=== PATIENT | female | born 1955 | race African-American/Black ===

== ENCOUNTER 2018-01-14 21:55 | Inpatient (IN) | payer SELFPAY ==
[2018-01-14 22:21] LABS: Bilirubin Small (Negative); Blood, Urine Moderate (Negative); Clarity TURBID (Clear); Glucose, Urine (Dipstick) Negative (Negative); Leukocyte Small (Negative); Nitrite Negative (Negative); Protein, Urine (Dipstick) 300 mg/dL (Neg-Trace); Specific Gravity, Urine 1.019 (1.002-1.036); Urobilinogen 0.2 mg/dL (0.2-1.0); pH, Urine 5.5 (5.0-9.0)
[2018-01-14 22:24] LABS: Squamous Epithelial 21-50 HPF (0-3)
[2018-01-14 22:25] LABS: Pathc Cast-AUWi Flag 14.04 (0-2.49); Yeast-AUWi Flag 186.8 (0-25.0)
[2018-01-14 22:31] LABS: Mean Corpuscular HGB CONC 33.9 g/dL (32.0-36.0); Mean Corpuscular Hemoglobin 30.8 pg (27.0-31.0); Mean Corpuscular Volume 90.7 fL (78.0-98.0); Mean Platelet Volume 8.1 fL (7.4-10.4); Platelet Count 158 thou/uL (130-400); RBC Distribution Width 11.9 % (11.5-14.5); Red Blood Cell (RBC) Count 3.58 mill/uL (4.20-5.40); White Blood Cell (WBC) Count 15.8 thou/uL (4.8-10.8)
[2018-01-14 22:33] LABS: Renal Epithelial 0-3 HPF (0-3); Transitional Epithelial 0-3 HPF (0-3)
[2018-01-14] MEDS ORDERED: Ibuprofen 800 MG TAB ONE (22:33)
[2018-01-14 22:35] LABS: Bacteria/HPF 1+ HPF (None Seen)
[2018-01-14 22:36] LABS: Hyaline Casts/LPF 4-6 HYALINE CAST LPF (0-3 Hyaline); Other Casts/LPF 0-3 COARSE GRAN LPF (0-3 Hyaline)
[2018-01-14 22:47] LABS: ALT (SGPT) 9 U/L (8-55); AST (SGOT) 14 U/L (5-34); Albumin 3.5 g/dL (3.4-4.8); Alkaline Phosphatase 78 U/L (40-150); Anion Gap 18 mmol/L (10-20); BUN (Urea Nitrogen) 61 mg/dL (9.8-20.1); Bilirubin, Total 0.6 mg/dL (0.2-1.2); Calc. Creatinine Clearance 0 mL/min (70-130); Calcium 8.9 mg/dL (7.8-10.44); Carbon Dioxide 16 mmol/L (23-31); Chloride 101 mmol/L (98-107); Estimated GFR-MDRD 11; Globulin 3.5 g/dL (2.4-3.5); Glucose 108 mg/dL (80-115); Lipase 21 U/L (8-78); Sodium 132 mmol/L (136-145)
[2018-01-14 22:52] LABS: Base Excess-Venous -7.1 mmol/L (0 (+/- 2.5)); Bicarbonate (HCO3v) 18.4 mmol/L (1.0-85.0); CO2 Tension (PvCO2) 36.1 mmHg (41.0-51.0); Calcium, Ionized 1.09 mmol/L (1.12-1.32); Hemoglobin - Calc 9.5 g/dL (12.0-18.0); O2 Tension (PvO2) 24.5 mmHg (35.0-45.0); Potassium 2.9 mmol/L (3.4-4.7); T. Carbon Dioxide 19.5 mmol/L (1.0-85.0); pH (Venous) 7.316 (7.35-7.45); vO2 Saturation-calc 39.3 % (94-98)
[2018-01-14 23:05] LABS: Band 25 % (5-11); Lymphocytes 3 % (21-51); MDiff Complete? YES; Monocytes 2 % (0-10); Neutrophil 70 % (42-75); PLT Morphology Comment Appears Adequate
--- NOTE | 2018-01-14 23:06 | RAD ---
PORTABLE CHEST: History: Fever. Diarrhea. Vomiting. Comparison: 09-19-16 FINDINGS: Heart size is within normal limits. Aorta is mildly tortuous. Lungs are clear of infiltrates. The bon es are demineralized. IMPRESSION: No active intrathoracic disease. POS: [facility]
[2018-01-14] MEDS ORDERED: Piperacillin/Tazobactam 4.5 GM VIAL ONE (23:41)
[2018-01-15] MEDS ORDERED: Potassium Chloride 20 MEQ in Premix Bag 1 BAG IVPB SCH (00:15)
--- NOTE | 2018-01-15 01:19 | HP ---
DATE OF ADMISSION: 01/15/2018 CHIEF COMPLAINT: Abdominal pain and fever. HISTORY OF PRESENT ILLNESS: This is a 62-year-old -[place] female who was living by herself. She has been feeling weak and tired and lethargic with fever and abdominal pain for the past few da ys and she was seen lying on the floor by her friend who was checking on her and she immediately call ed EMS and EMS picked her up and she was brought to the ER. The patient was very tachycardic at 110 with high fever of 101. The patient was noted to have adithya urinary tract infection with elevated wh ite count and worsening renal functions. Patient looked extremely sick at this time. She denies hav ing any chest pain and was unable to give any other history at this time. She denies having any past medical history, but again patient is a very disoriented and unable to give any history and no famil y member is arrived at the bedside. PAST MEDICAL HISTORY: None. PAST SURGICAL HISTORY: None. SOCIAL HISTORY: Unable to obtain. She lives independently by herself. No history of smoking, alcoh ol or illicit drug use according to her. FAMILY HISTORY: No significant family history. This has been thoroughly reviewed with the patient. REVIEW OF SYSTEMS: Unable to obtain review of systems at the patient is very lethargic and disorient ed, unable to answer most of the questions with some of the questions have been answered in the HPI b ased on a thorough evaluation of her and from the ER physicians with primary contact with patient's a unt. ALLERGIES: No known drug allergies. HOME MEDICATIONS: None. PHYSICAL EXAMINATION: VITAL SIGNS: Blood pressure 101/60, heart rate is 110, respiratory rate is 18, saturation is 98%. GENERAL: The patient is moderately built and moderately nourished, does not appears to be in acute d istress at this time. Alert and oriented x3. HEENT: Atraumatic, normocephalic. PERRLA. Extraocular movements were intact. Oral mucosa is pink and dry. CARDIOVASCULAR: S1, S2 normal. No murmurs, rubs or gallops. LUNGS: Bilateral air entry was equal. No wheezing, no crackles. ABDOMEN: Soft, nontender, no guarding, no rebound tenderness. Bowel sounds were normal. MUSCULOSKELETAL: No calf tenderness. No pedal edema. No joint tenderness. No joint swelling. Pat ient has emaciated and atrophied upper and lower extremities. PSYCHIATRIC: No signs of suicidal ideation and no signs of ez. ASSISTANT STORE MANAGER TRAINEE: Cranial nerve examination could not because the patient is completely disoriented, not followin g commands. LABORATORY DATA: Sodium is 135, potassium is 2.9, chloride is 105, BUN is 61, creatinine is 4.7 GFR of 11. WBC is 15.8, hemoglobin is 11.0, platelets are 158. ASSESSMENT: 1. Severe sepsis. 2. Acute pyelonephritis. 3. Acute kidney injury. 4. Hypokalemia. 5. Anemia of chronic kidney disease. 6. Severe protein calorie malnutrition. 7. Severe dehydration. PLAN: 1. Plan is to closely monitor this patient in the IMCU as the patient is severely septic with low bl ood pressures. She received 2 liters of IV fluids in the ER with still low blood pressures and tachy cardia. I will start the patient on normal saline at 125 an hour if needed and if needed we will mov e the patient to ICU for 4+ hours. 2. The patient has acute pyelonephritis which is contributing to the sepsis. At this time, we will start the patient on Rocephin 2 grams daily as a source of the sepsis is clear with urinary tract inf ection. I would not put her on vancomycin as the patient has worsening renal functions at this time. We will continue with IV fluids management and we will closely monitor. We will get the renal ultr asound and we will consult Nephrology in the morning. We will avoid any nephrotoxic medications. 3. Patient has hypokalemia. The patient has been started on potassium protocol, but will very cauti ously manage to avoid any hyperkalemia at this time. 4. Patient has severe protein calorie malnutrition. We will consult dietitian for further managemen t and further counseling about the nutrition. 5. DVT prophylaxis, heparin 5000 subcu b.i.d. I spent 75 minutes with this patient, of this one hour is critical care time.
[2018-01-15] MEDS ORDERED: Ondansetron ODT 4 MG TAB PO PRN (01:55)
[2018-01-15] MEDS ORDERED: HYDROcodone/Acetaminophen 5/325 mg Tablet PO PRN (01:55)
[2018-01-15 02:38] LABS: Mean Corpuscular HGB CONC 34.5 g/dL (32.0-36.0); Mean Corpuscular Hemoglobin 31.4 pg (27.0-31.0); Mean Corpuscular Volume 91.3 fL (78.0-98.0); Platelet Count 143 thou/uL (130-400); RBC Distribution Width 11.9 % (11.5-14.5); Red Blood Cell (RBC) Count 3.16 mill/uL (4.20-5.40); White Blood Cell (WBC) Count 13.4 thou/uL (4.8-10.8)
[2018-01-15 02:54] LABS: Anion Gap 15 mmol/L (10-20); BUN (Urea Nitrogen) 60 mg/dL (9.8-20.1); Calc. Creatinine Clearance 0 mL/min (70-130); Calcium 7.9 mg/dL (7.8-10.44); Carbon Dioxide 14 mmol/L (23-31); Chloride 108 mmol/L (98-107); Estimated GFR-MDRD 14; Glucose 105 mg/dL (80-115); Potassium 3.6 mmol/L (3.5-5.1); Sodium 133 mmol/L (136-145)
[2018-01-15 03:30] LABS: Band 12 % (5-11); Hypochromia SLIGHT = 6-15 cells (100X) (0-5/hpf); Lymphocytes 6 % (21-51); MDiff Complete? YES; Monocytes 9 % (0-10); Neutrophil 73 % (42-75); PLT Morphology Comment Appears Adequate
--- NOTE | 2018-01-15 09:48 | ULT ---
BILATERAL RENAL ULTRASOUND COMPLETE: Date: 01/15/18 HISTORY: 62-year-old female with history of acute kidney insufficiency with abdominal pain. FINDINGS: Right kidney measures 9.0 x 3.6 x 5.3 cm. Left kidney measures 9.4 x 5.4 x 4.3 cm. No renal hydroneph rosis. The bladder appears unremarkable with bilateral ureteral jets. The right kidney echogenicity i s equal to that of liver, suggesting the possibility of some mild diffuse nonspecific chronic renal p arenchymal disease. IMPRESSION: No renal hydronephrosis. Right renal cortical echogenicity is equal to that of liver, possibly repres enting some mild nonspecific diffuse renal parenchymal disease. POS: [facility]
--- NOTE | 2018-01-15 12:09 | CON ---
DATE OF CONSULTATION: 01/15/2018 REASON FOR CONSULTATION: Elevated creatinine. HISTORY OF PRESENT ILLNESS: This is a 62-year-old female with a baseline creatinine of 4.88 on 10/13, presented to the hospital with a creatinine of 4.1. The patient's chief complaint was abdomin al pain and fever. The patient had poor intake as well as nausea and vomiting. PAST MEDICAL HISTORY: None. PAST SURGICAL HISTORY: None. SOCIAL HISTORY: No alcohol or drugs. FAMILY HISTORY: Negative for ESRD. REVIEW OF SYSTEMS: Unobtainable, the patient is very lethargic. ALLERGIES: Reviewed. HOME MEDICATIONS: None. PHYSICAL EXAMINATION: GENERAL: Patient is awake, alert. VITAL SIGNS: Afebrile, pulse 85, breathing 16, blood pressure ____/60. OBJECTIVE: See above. Awake, alert, in no acute distress. GENERAL APPEARANCE AND MENTAL STATUS: Fair. HEAD/NECK: Normocephalic. Atraumatic. EYES: EOMI. No deformity. EARS: Clear. No ulcers. NOSE: Intact. No lesions. MOUTH: Clear. No discharge. THROAT: Clear. No exudate. LUNGS: Clear. No crackles. CARDIAC: S1, S2. No rub. ABDOMEN: Benign. BS+. GENITALIA/RECTUM: Begum absent. BACK/EXTREMITIES: Edema 0+ Ulcer- NEUROLOGICAL: Alert and motor intact. SKIN: Rash- Bruise- LYMPHATICS: Edema- Ulcer- LABORATORY: Creatinine was 3.8, improved from 4.7, bicarbonate 14. ASSESSMENT AND RECOMMENDATIONS: 1. Acute kidney injury with chronic kidney disease, most likely due to decreased effective arterial blood volume. Continue hydration. 2. Hypokalemia, improved. 3. Hyponatremia due to renal failure. 4. Metabolic acidosis. I would recommend GI workup. 5. Anemia, stable. 6. Medication based on glomerular filtration rate are appropriate. No indication for dialysis at this time.
[2018-01-15] MEDS: Famotidine/PF 20 mg/2ml Vial SLOW IVP SCH (15:34)
[2018-01-15] MEDS: Docusate 100 MG CAP PO SCH ×2 (15:34→21:42)
[2018-01-15] MEDS: Sodium Chloride 0.9% 1,000 ML IV SCH ×3 (15:34→17:53)
[2018-01-15] MEDS: cefTRIAXone\\ROCEPHIN 2 GM in Sodium Chloride 0.9% 100 ML IVPB SCH (15:34)
--- NOTE | 2018-01-15 15:54 | PDOC.EVN ---
Event Note - Event Note Event Note: Pt seen and examined. cont IVF and IV ABx. Hemodynamically stable. am labs Dr. Seth to take over care in morning
[2018-01-15] MEDS: Heparin 5,000 UNITS/ML VIAL SC SCH ×2 (16:13→17:18)
[2018-01-16] MEDS: cefTRIAXone\\ROCEPHIN 2 GM in Sodium Chloride 0.9% 100 ML IVPB SCH (02:03)
[2018-01-16] MEDS: Sodium Chloride 0.9% 1,000 ML IV SCH ×2 (05:38→15:55)
[2018-01-16 06:23] LABS: Anion Gap 12 mmol/L (10-20); BUN (Urea Nitrogen) 41 mg/dL (9.8-20.1); Calc. Creatinine Clearance 19 mL/min (70-130); Calcium 8.6 mg/dL (7.8-10.44); Carbon Dioxide 17 mmol/L (23-31); Chloride 112 mmol/L (98-107); Estimated GFR-MDRD 27; Glucose 89 mg/dL (80-115); Potassium 3.2 mmol/L (3.5-5.1); Sodium 138 mmol/L (136-145)
[2018-01-16 06:35] LABS: Band 28 % (5-11); Eosinophils 1 % (0-10); Hemoglobin 9.8 g/dL (12.0-16.0); Lymphocytes 10 % (21-51); MDiff Complete? YES; Mean Corpuscular HGB CONC 34.2 g/dL (32.0-36.0); Mean Corpuscular Hemoglobin 31.4 pg (27.0-31.0); Mean Corpuscular Volume 91.9 fL (78.0-98.0); Mean Platelet Volume 7.8 fL (7.4-10.4); Monocytes 3 % (0-10); Neutrophil 58 % (42-75); PLT Morphology Comment Appears Adequate; Platelet Count 147 thou/uL (130-400); RBC Distribution Width 12.4 % (11.5-14.5); Red Blood Cell (RBC) Count 3.11 mill/uL (4.20-5.40); White Blood Cell (WBC) Count 10.8 thou/uL (4.8-10.8)
[2018-01-16] MEDS: Famotidine/PF 20 mg/2ml Vial SLOW IVP SCH (09:53)
[2018-01-16] MEDS: Enoxaparin Sodium 40 MG/0.4 ML SYRINGE SC SCH (09:53)
[2018-01-16] MEDS: Docusate 100 MG CAP PO SCH ×2 (09:54→21:15)
[2018-01-16] MEDS ORDERED: Lisinopril 10 MG TAB PO SCH (11:30)
[2018-01-16] MEDS: Potassium Chloride 20 MEQ TAB PO SCH ×3 (11:41→21:15)
--- NOTE | 2018-01-16 12:38 | PRG ---
DATE OF SERVICE: 01/16/2018 SUBJECTIVE: A 62-year-old female being seen for acute kidney injury. The patient denies any nausea, vomiting, chest pain. PHYSICAL EXAMINATION: GENERAL: Patient is awake, alert. VITAL SIGNS: Afebrile, pulse 92, breathing 16, blood pressure 150/66. OBJECTIVE: See above. Awake, alert, in no acute distress. GENERAL APPEARANCE AND MENTAL STATUS: Fair. HEAD/NECK: Normocephalic. Atraumatic. EYES: EOMI. No deformity. EARS: Clear. No ulcers. NOSE: Intact. No lesions. MOUTH: Clear. No discharge. THROAT: Clear. No exudate. LUNGS: Clear. No crackles. CARDIAC: S1, S2. No rub. ABDOMEN: Benign. BS+. GENITALIA/RECTUM: Begum absent. BACK/EXTREMITIES: Edema 0+ Ulcer- NEUROLOGICAL: Alert and motor intact. SKIN: Rash- Bruise- LYMPHATICS: Edema- Ulcer- LABORATORY: Hemoglobin 9.8.: Potassium 3.2, creatinine 2.5. ASSESSMENT AND PLAN: 1. Acute kidney injury, improved. 2. Hypertension, stable. 3. Anemia, stable. 4. Hypokalemia. Recommend potassium replacement. No indication for dialysis.
[2018-01-16 13:06] VITALS: BMI 16.7
[2018-01-16 18:31] LABS: HIV (1/2) Antibody/Antigen Non-Reactive (NonReactive); HIV 1/2 INDEX 0.15 S/CO (<1.00); Hep C IgG Ab Non-Reactive (NonReactive); Hep C Index 0.05 S/CO (0-0.79)
[2018-01-16 19:21] LABS: Iron 23 ug/dL (50-170); Iron Binding Capacity, Total 165 mcg/dL (265-497)
--- NOTE | 2018-01-16 20:10 | CON ---
DATE OF CONSULTATION: 01/16/2018 REASON FOR CONSULTATION: Invasive urinary tract infection. HISTORY OF PRESENT ILLNESS: A 62-year-old with a history, which is not particularly remarkable befor e this admission and a new onset of fever, lethargy, and abdominal pain. The patient lives by hersel f in [place] and a friend found her on the floor, called EMS. Initial findings include tachycardia an d a temperature of 101. Urinalysis was abnormal. Initial BP 101/66, pulse 110 and the exam was not particularly remarkable except for tachycardia and some abdominal tenderness, which was diffuse. Amanda s far, microbiology information shows 2 sets of blood cultures with E. coli and urine culture with E. coli with lopez-susceptible phenotype. Renal ultrasound performed with no hydronephrosis, possible py elonephritis on the right side. Chest x-ray with no active intrathoracic disease. The patient is cu rrently receiving ceftriaxone and levofloxacin. She is feeling better, but still weak. Denies heada ches, visual symptoms, sore throat, odynophagia, dysphagia. No cough, sputum production, or chest pa in. Little bit of abdominal pain. No dysuria. Never had dysuria. No incontinence. No urinary ret ention. No joint symptoms. No neurological symptoms. PAST MEDICAL HISTORY: Hypertension. PAST SURGICAL HISTORY: Negative. SOCIAL HISTORY: Never a smoker. Lives alone in [place]. FAMILY HISTORY: Noncontributory. ALLERGIES: None. She was taking blood pressure medications. CURRENT MEDICATIONS: Include Rocephin, lisinopril, levofloxacin, famotidine, Pepcid, potassium, hydr ocodone. PHYSICAL EXAMINATION: VITAL SIGNS: T-max 100.1, now 98.2; blood pressure 160/77; pulse 87; respirations 16; O2 sat 94%. SKIN: Essentially normal. No lymphadenopathy. HEENT: Ocular movements conjugate. Oral cavity with no bill moore's slough teeth left. Normal oral mucosa. NECK: Supple. No jugular vein distention. LUNGS: With symmetric clear breath sounds. HEART: S1, S2 regular rate without murmurs. ABDOMEN: Soft. Not distended or tender. No ascites. Maybe a little bit of bladder distention, but she feels the need to void. EXTREMITIES: No joint inflammatory activity. Pulses are within normal limits. She moves extremitie s equally. NEUROLOGIC: Cognitive function appears to be intact. LABORATORY DATA: White cell count is down from 15 to 10, hemoglobin down to 9.8, platelets 147, 28% bands. Chemistry with a creatinine of 2.23, which is improved from admission. Liver profile is norm al. Albumin is 3.5. Urinalysis with greater than 50 wbc's. C. difficile toxin and antigen negative . ASSESSMENT: Hypertension, now with evidence of pyelonephritis in right side with Escherichia coli ba cteremia with lopez susceptibility. At this point, transition to oral quinolone. Discontinue IV medic ation. Treat for 7-10 days total. Check postvoid residual to verify adequate bladder emptying. Fol low up urine cultures down the road in the outpatient setting.
[2018-01-17] MEDS: Sodium Chloride 0.9% 1,000 ML IV SCH ×3 (01:52→21:36)
[2018-01-17] MEDS: Acetaminophen 325 MG TAB PO PRN ×3 (04:31→21:35)
[2018-01-17 05:54] LABS: Anion Gap 15 mmol/L (10-20); BUN (Urea Nitrogen) 26 mg/dL (9.8-20.1); Calc. Creatinine Clearance 28 mL/min (70-130); Calcium 8.6 mg/dL (7.8-10.44); Carbon Dioxide 14 mmol/L (23-31); Chloride 112 mmol/L (98-107); Estimated GFR-MDRD 43; Glucose 124 mg/dL (80-115); Potassium 3.4 mmol/L (3.5-5.1); Sodium 138 mmol/L (136-145)
[2018-01-17 06:21] LABS: Band 5 % (5-11); Hemoglobin 9.7 g/dL (12.0-16.0); Hypochromia SLIGHT = 6-15 cells (100X) (0-5/hpf); Lymphocytes 5 % (21-51); MDiff Complete? YES; Mean Corpuscular HGB CONC 34.9 g/dL (32.0-36.0); Mean Corpuscular Hemoglobin 31.7 pg (27.0-31.0); Mean Corpuscular Volume 90.8 fL (78.0-98.0); Mean Platelet Volume 8.6 fL (7.4-10.4); Monocytes 5 % (0-10); Neutrophil 85 % (42-75); PLT Morphology Comment Appears Decreased; Platelet Count 114 thou/uL (130-400); RBC Distribution Width 13.1 % (11.5-14.5); Red Blood Cell (RBC) Count 3.07 mill/uL (4.20-5.40); White Blood Cell (WBC) Count 11.5 thou/uL (4.8-10.8)
[2018-01-17] MEDS: Docusate 100 MG CAP PO SCH ×2 (08:52→21:22)
[2018-01-17] MEDS: Enoxaparin Sodium 40 MG/0.4 ML SYRINGE SC SCH (08:54)
[2018-01-17] MEDS ORDERED: Lisinopril 10 MG TAB PO SCH ×2 (09:00→17:45)
[2018-01-17] MEDS: Famotidine/PF 20 mg/2ml Vial SLOW IVP SCH (09:35)
--- NOTE | 2018-01-17 11:07 | PRG ---
DATE OF SERVICE: 01/17/2018 SUBJECTIVE: This is a 62-year-old female being seen for acute kidney injury. The patient denies nory sea, vomiting or chest pain. PHYSICAL EXAMINATION: GENERAL: Patient is awake, alert. VITAL SIGNS: Afebrile, pulse 78, breathing 16, blood pressure 134/73. HEAD/NECK: Normocephalic. Atraumatic. EYES: EOMI. No deformity. EARS: Clear. No ulcers. NOSE: Intact. No lesions. MOUTH: Clear. No discharge. THROAT: Clear. No exudate. LUNGS: Clear. No crackles. CARDIAC: S1, S2. No rub. ABDOMEN: Benign. BS+. GENITALIA/RECTUM: Begum absent. BACK/EXTREMITIES: Edema 0+ Ulcer- NEUROLOGICAL: Alert and motor intact. SKIN: Rash- Bruise- LYMPHATICS: Edema- Ulcer- LABORATORY DATA: Show hemoglobin 9.7, potassium 3.4, creatinine 1.4. ASSESSMENT AND PLAN: 1. Acute kidney injury, improved. 2. Chronic kidney disease, stable. 3. Hypokalemia. Recommend high potassium diet. 4. Metabolic acidosis. I would recommend sodium bicarbonate b.i.d. No indication for dialysis.
[2018-01-17] MEDS: Potassium Chloride 20 MEQ TAB PO SCH ×2 (18:28→21:22)
[2018-01-17] MEDS: Sodium Bicarbonate Tab 325 MG TAB PO SCH (21:22)
[2018-01-18 06:36] LABS: Hemoglobin 9.1 g/dL (12.0-16.0); Mean Corpuscular HGB CONC 34.1 g/dL (32.0-36.0); Mean Corpuscular Hemoglobin 30.3 pg (27.0-31.0); Mean Corpuscular Volume 88.9 fL (78.0-98.0); Mean Platelet Volume 9.9 fL (7.4-10.4); Platelet Count 66 thou/uL (130-400); RBC Distribution Width 13.6 % (11.5-14.5); Red Blood Cell (RBC) Count 3.01 mill/uL (4.20-5.40); White Blood Cell (WBC) Count 13.6 thou/uL (4.8-10.8)
[2018-01-18 06:42] LABS: Anion Gap 13 mmol/L (10-20); BUN (Urea Nitrogen) 20 mg/dL (9.8-20.1); Calc. Creatinine Clearance 35 mL/min (70-130); Calcium 8.3 mg/dL (7.8-10.44); Carbon Dioxide 20 mmol/L (23-31); Chloride 111 mmol/L (98-107); Estimated GFR-MDRD 58; Glucose 106 mg/dL (80-115); Potassium 3.2 mmol/L (3.5-5.1); Sodium 141 mmol/L (136-145)
[2018-01-18 07:19] LABS: Band 16 % (5-11); Eosinophils 1 % (0-10); Lymphocytes 12 % (21-51); MDiff Complete? YES; Monocytes 4 % (0-10); Neutrophil 67 % (42-75); PLT Morphology Comment Appears Decreased; Polychromasia SLIGHT = 2-3 cells (100X) (0-2/hpf); Schistocytes SLIGHT = 2-5 cells (100X) (0-1/hpf)
[2018-01-18 08:21] VITALS: BP 153/71; TEMP 98.9
[2018-01-18] MEDS ORDERED: Lisinopril 20 MG TAB PO SCH (09:00)
[2018-01-18] MEDS ORDERED: Potassium Chloride 20 MEQ TAB PO SCH (09:00)
[2018-01-18] MEDS: Docusate 100 MG CAP PO SCH (09:41)
[2018-01-18] MEDS: Famotidine/PF 20 mg/2ml Vial SLOW IVP SCH (09:41)
[2018-01-18] MEDS: Enoxaparin Sodium 40 MG/0.4 ML SYRINGE SC SCH (09:41)
[2018-01-18] MEDS: Sodium Chloride 0.9% 1,000 ML IV SCH (09:46)
[2018-01-18] MEDS: Sodium Bicarbonate Tab 325 MG TAB PO SCH (09:50)
--- NOTE | 2018-01-18 11:31 | PRG ---
DATE OF SERVICE: 01/18/2018 SUBJECTIVE: This is a 62-year-old female being seen for acute kidney injury. The patient denies any nausea, vomiting or chest pain. PHYSICAL EXAMINATION: GENERAL: Patient is awake, alert. VITAL SIGNS: Afebrile, pulse 97, breathing at 16, blood pressure 150/67. OBJECTIVE: See above. Awake, alert, in no acute distress. GENERAL APPEARANCE AND MENTAL STATUS: Fair. HEAD/NECK: Normocephalic. Atraumatic. EYES: EOMI. No deformity. EARS: Clear. No ulcers. NOSE: Intact. No lesions. MOUTH: Clear. No discharge. THROAT: Clear. No exudate. LUNGS: Clear. No crackles. CARDIAC: S1, S2. No rub. ABDOMEN: Benign. BS+. GENITALIA/RECTUM: Begum absent. BACK/EXTREMITIES: Edema 0+ Ulcer- NEUROLOGICAL: Alert and motor intact. SKIN: Rash- Bruise- LYMPHATICS: Edema- Ulcer- LABORATORY: Creatinine 1.1, potassium 3.2. ASSESSMENT AND RECOMMENDATIONS: 1. Acute kidney injury with chronic kidney disease, improved. 2. Chronic kidney disease stage 3, stable. 3. Hypertension. Start low dose beta-trang. 4. Hypokalemia. Recommend potassium replacement. 5. Anemia, stable. 6. Metabolic acidosis, stable.
[2018-01-19] MEDS ORDERED: Famotidine 20 MG TAB PO SCH (09:00)
== END 2018-01-18 13:52 | disposition home or self-care (01) | DRG 871 ==
LOC: ERS 21:55 → ERHOLD 01-15 02:14 → 2NO 01-15 14:44
PROVIDERS: ADMIT Family Medicine; ATTEND Family Medicine
DX: A41.9 Sepsis, unspecified organism (principal); E43 Unspecified severe protein-calorie malnutrition; N17.9 Acute kidney failure, unspecified; Z68.1 Body mass index [BMI] 19.9 or less, adult; N10 Acute pyelonephritis; N39.0 Urinary tract infection, site not specified; E87.2 Acidosis; R65.20 Severe sepsis without septic shock; E87.6 Hypokalemia; D63.1 Anemia in chronic kidney disease; E86.0 Dehydration; I12.9 Hypertensive chronic kidney disease with stage 1 through stage 4 chronic kidney disease, or unspecified chronic kidney disease; N18.3 Chronic kidney disease, stage 3 (moderate); B96.20 Unspecified Escherichia coli [E. coli] as the cause of diseases classified elsewhere
CPT/HCPCS: 36415; 71045; 76770; 80048; 80053; 81003; 81015; 82274; 82330; 82728; 82803; 83540; 83550; 83605; 83690; 85025; 86803; 87040; 87045; 87046; 87077; 87086; 87149; 87186; 87324; 87389; 87449; 87899; 93005; 96361; 96365; 96367; 96375; A4216; G8978-GP-CJ; G8979-GP-CJ; G8980-GP-CJ; G8987-GO-CI; G8988-GO-CI; G8989-GO-CI; J0696; J1644; J1650; J1956; J2543; J3370; J3480; J7050; S0028

== ENCOUNTER 2021-01-06 20:42 | Emergency (ER) | payer MEDICARE ==
[2021-01-06 23:53] LABS: Bilirubin Negative (Negative); Blood, Urine Negative (Negative); Clarity Clear (Clear); Glucose, Urine (Dipstick) Normal (Negative); Ketone, Urine Negative (Negative); Leukocyte 75 Leu/uL (Negative); Nitrite Negative (Negative); Protein, Urine (Dipstick) Negative (Neg-Trace); RBC/HPF 0-3 HPF (0-3); Urobilinogen Normal mg/dL (Less than 2); WBC/HPF 0-3 HPF (0-3)
[2021-01-06 23:57] LABS: Bacteria/HPF 1+ HPF (None Seen)
[2021-01-07 00:30] LABS: #Basophils 0.1 thou/uL (0.0-0.2); #Eosinphils 0.1 thou/uL (0.0-0.7); #Lymphocytes 2.1 thou/uL (1.20-3.40); #Monocytes 0.4 thou/uL (0.11-0.59); #Neutrophils 4.5 thou/uL (1.40-6.50); %Basophils 1.1 % (0.0-1.0); %Lymphocytes 29.2 % (21.0-51.0); %Neutrophils 61.8 % (42.0-75.0); Hemoglobin 12.1 g/dL (12.0-16.0); Mean Corpuscular HGB CONC 32.1 g/dL (32.0-36.0); Mean Corpuscular Hemoglobin 29.6 pg (27.0-31.0); Mean Corpuscular Volume 92.1 fL (78.0-98.0); Mean Platelet Volume 7.4 fL (7.4-10.4); Platelet Count 270 thou/uL (130-400); RBC Distribution Width 13.1 % (11.5-14.5); Red Blood Cell (RBC) Count 4.08 mill/uL (4.20-5.40); White Blood Cell (WBC) Count 7.2 thou/uL (4.8-10.8)
[2021-01-07 00:58] LABS: Anion Gap 14 mmol/L (10-20); BUN (Urea Nitrogen) 25 mg/dL (9.8-20.1); Calc. Creatinine Clearance 0 mL/min (70-130); Carbon Dioxide 24 mmol/L (23-31); Chloride 107 mmol/L (98-107); Glucose 122 mg/dL (80-115); Potassium 4.6 mmol/L (3.5-5.1); Sodium 140 mmol/L (136-145)
[2021-01-07] MEDS ORDERED: Morphine 4 MG/ML VIAL ONE (01:20)
[2021-01-07] MEDS ORDERED: Ondansetron PF 4 MG/2 ML Vial ONE (01:20)
[2021-01-07 01:22] LABS: ALT (SGPT) 13 U/L (8-55); AST (SGOT) 21 U/L (5-34); Albumin 4.3 g/dL (3.4-4.8); Alkaline Phosphatase 74 U/L (40-110); Bilirubin, Total 0.2 mg/dL (0.2-1.2); Globulin 3.3 g/dL (2.4-3.5); Lipase 54 U/L (8-78); Protein, Total 7.6 g/dL (5.8-8.1)
== END 2021-01-07 04:03 | disposition home or self-care (01) ==
LOC: ERS 20:42
DX: K52.9 Noninfective gastroenteritis and colitis, unspecified (principal); I10 Essential (primary) hypertension; J45.909 Unspecified asthma, uncomplicated; F17.210 Nicotine dependence, cigarettes, uncomplicated
CPT/HCPCS: 36415; 74177; 81003; 81015; 83690; 85025; 96374; 96375; J2270; J2405

== ENCOUNTER 2023-04-13 11:00 | Emergency (ER) | payer MEDICARE, OTHER ==
[~2023-04-13 11:00] MED LIST: Iopamidol-370 76% 500 ML MDV (1 ML CHARGE) ONE
[2023-04-13 12:01] LABS: Bacteria/HPF None Seen HPF (None Seen); Bilirubin Negative (Negative); Blood, Urine Negative (Negative); CAUTI Indications for Culture Pelvic or flank pain; Clarity Clear (Clear); Glucose, Urine (Dipstick) Normal (Negative); Ketone, Urine Negative (Negative); Leukocyte Negative Leu/uL (Negative); Nitrite Negative (Negative); Protein, Urine (Dipstick) Negative (Neg-Trace); RBC/HPF 0-3 HPF (0-3); Specific Gravity, Urine 1.022 (1.002-1.036); Urobilinogen Normal mg/dL (Less than 2); WBC/HPF 0-3 HPF (0-3); pH, Urine 5.5 (5.0-9.0)
[2023-04-13 12:03] LABS: Urine Culture Reflex No No
[2023-04-13] MEDS ORDERED: fentaNYL 50 mcg/mL 1 mL Vial ONE (12:09)
[2023-04-13 12:17] LABS: #Basophils 0.1 thou/uL (0.0-0.2); #Eosinphils 0.1 thou/uL (0.0-0.7); #Monocytes 0.6 thou/uL (0.11-0.59); #Neutrophils 4.9 thou/uL (1.40-6.50); %Basophils 0.7 % (0.0-1.0); %Eosinophils 1.4 % (0.0-10.0); %Lymphocytes 23.5 % (21.0-51.0); %Monocytes 7.8 % (0.0-10.0); %Neutrophils 66.5 % (42.0-75.0); Hematocrit 38.8 % (36.0-47.0); Hemoglobin 12.2 g/dL (12.0-16.0); Mean Corpuscular HGB CONC 31.4 g/dL (32.0-36.0); Mean Corpuscular Hemoglobin 26.8 pg (27.0-31.0); Mean Corpuscular Volume 85.1 fl (78.0-98.0); Mean Platelet Volume 9.8 fL (7.4-10.4); Platelet Count 286 10x3/uL (130-400); RBC Distribution Width 15.4 % (11.5-14.5); Red Blood Cell (RBC) Count 4.56 mill/uL (4.20-5.40); White Blood Cell (WBC) Count 7.4 10x3/uL (4.8-10.8)
[2023-04-13 12:33] LABS: ALT (SGPT) 11 U/L (8-55); AST (SGOT) 15 U/L (5-34); Albumin 5.1 g/dL (3.4-4.8); Alkaline Phosphatase 102 U/L (40-110); Anion Gap 13 mmol/L (10-20); BUN (Urea Nitrogen) 17 mg/dL (9.8-20.1); Bilirubin, Total 0.3 mg/dL (0.2-1.2); Calc. Creatinine Clearance 0 mL/min (70-130); Calcium 10.2 mg/dL (7.8-10.44); Carbon Dioxide 25 mmol/L (23-31); Chloride 105 mmol/L (98-107); Estimated GFR 45; Globulin 3.1 g/dL (2.4-3.5); Glucose 91 mg/dL (80-115); Potassium 4.2 mmol/L (3.5-5.1); Protein, Total 8.2 g/dL (5.8-8.1); Sodium 139 mmol/L (136-145)
[2023-04-13] MEDS ORDERED: Ketorolac Tromethamine 30 MG/ML VIAL ONE (14:05)
[2023-04-13] MEDS ORDERED: Morphine 4 MG/ML VIAL ONE (14:05)
== END 2023-04-13 14:12 | disposition home or self-care (01) ==
LOC: ERS 11:00
DX: M54.50 Low back pain, unspecified (principal); I10 Essential (primary) hypertension; F17.210 Nicotine dependence, cigarettes, uncomplicated
CPT/HCPCS: 74177; 80053; 81001; 85025; 96374; 96375; J1885; J2270; J3010; Q9967

== ENCOUNTER 2023-08-30 14:21 | Outpatient (CLI) | payer MEDICARE | END 2023-08-30 14:22 | disposition home or self-care (01) | LOC: BICMAMMO 14:21 | PROVIDERS: ATTEND Nurse Practitioner Family | DX: N64.89 Other specified disorders of breast (principal); N63.10 Unspecified lump in the right breast, unspecified quadrant | CPT/HCPCS: 76642; 77065; G0279 ==

== ENCOUNTER 2023-12-05 13:34 | Outpatient (CLI) | payer MEDICARE | END 2023-12-05 13:35 | disposition home or self-care (01) | LOC: BICMAMMO 13:34 | PROVIDERS: ATTEND Nurse Practitioner Family | DX: N64.4 Mastodynia (principal); N63.15 Unspecified lump in the right breast, overlapping quadrants | CPT/HCPCS: 76642; 77065; G0279 ==

== ENCOUNTER 2024-07-03 14:09 | Outpatient (CLI) | payer MEDICARE, OTHER | END 2024-07-03 14:10 | disposition home or self-care (01) | LOC: RAD 14:09 | PROVIDERS: ATTEND Internal Medicine | DX: R06.00 Dyspnea, unspecified (principal); J98.4 Other disorders of lung; M81.0 Age-related osteoporosis without current pathological fracture; M48.55XA Collapsed vertebra, not elsewhere classified, thoracolumbar region, initial encounter for fracture; I70.0 Atherosclerosis of aorta | CPT/HCPCS: 71046 ==